=== PATIENT | female | born 1980 | race American Indian/Alaskan Native ===

== ENCOUNTER 2020-12-26 20:03 | Emergency (ER) | payer BC ==
[2020-12-26 20:37] VITALS: BP 148/98
[2020-12-26] MEDS ORDERED: HYDROcodone/ACETAMINOPHEN 10-325MG TAB PO ONE (21:47)
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
== END 2020-12-26 22:47 | disposition left against medical advice (07) ==
LOC: ED 20:03
DX: R51.9 Headache, unspecified (principal); M54.2 Cervicalgia; Z88.1 Allergy status to other antibiotic agents; Z88.8 Allergy status to other drugs, medicaments and biological substances; Y04.2XXA Assault by strike against or bumped into by another person, initial encounter; Y93.89 Activity, other specified; Y92.89 Other specified places as the place of occurrence of the external cause; Y99.8 Other external cause status
CPT/HCPCS: 70450; 70486; 72125